=== PATIENT | male | born 1965 | race Caucasian/White ===

== ENCOUNTER 2020-02-12 22:24 | Inpatient (IN) | payer OTHER ==
[2020-02-12 22:48] VITALS: BMI 24.3
[2020-02-13] MEDS ORDERED: LACTATED RINGERS SOLUTION 1000 ML INFUS.BAG IV ONE (01:23)
[2020-02-13 02:29] LABS: BASO % 0.4 % (0-2.0); EOS % 0.4 % (0-4.5); HEMATOCRIT 43.6 % (35.4-49); HEMOGLOBIN 14.8 GM/dL (11.7-16.9); LYMPH % 26.2 % (8-40); MCH 30.5 pg (25.7-33.7); MEAN CELL VOLUME 89.9 fl (80-96); MEAN PLT VOLUME 8.6 fl (7.5-11.1); MONO % 10.8 % (3.8-10.2); NEUT % 62.2 % (42.8-82.8); PLATELET COUNT 167 K/MM3 (134-434); RBC 4.85 M/mm3 (4.00-5.60); RDW 12.7 % (11.9-15.9); WHITE BLOOD COUNT 5.2 K/mm3 (4.0-10.0)
[2020-02-13 02:51] LABS: CHLORIDE 97 mmol/L (98-107); SODIUM 134 mmol/L (136-145)
[2020-02-13 02:53] LABS: ALBUMIN 3.6 g/dl (3.4-5.0); ANION GAP 9 MMOL/L (8-16); CALCIUM 8.5 mg/dL (8.5-10.1); CO2 28 mmol/L (21-32)
[2020-02-13 02:54] LABS: BLOOD UREA NITROGEN 15.2 mg/dL (7-18); GLUCOSE,RANDOM 106 mg/dL (74-106); INR 1.08 (0.83-1.09); PROTHROMBIN TIME (PATIENT) 13.2 SEC (9.7-13.0)
[2020-02-13 02:56] LABS: ACTIVATED PTT 28.1 SECONDS (25.2-36.5); SGPT/ALT 43 U/L (13-61)
[2020-02-13 02:57] LABS: CREATININE 0.9 mg/dL (0.55-1.3); SGOT/AST 20 U/L (15-37)
[2020-02-13 02:58] LABS: BILIRUBIN,TOTAL 0.4 mg/dL (0.2-1); TOT PROT 7.1 g/dl (6.4-8.2)
[2020-02-13 02:59] LABS: ALK PHOS 56 U/L (45-117)
[2020-02-13] MEDS ORDERED: ASPIRIN 325 MG TABLET PO ONE (04:44)
[2020-02-13] MEDS ORDERED: ASPIRIN 81 MG CHEWABLE TABLETS PO ONE (04:48)
[2020-02-13] MEDS ORDERED: ASPIRIN 81 MG CHEWABLE TABLETS ONE (04:53)
[2020-02-13 07:15] LABS: COCAINE, UR NEGATIVE ng/ml (CUTOFF=300); METHADONE, UR NEGATIVE ng/ml (CUTOFF=300); OPIATES, URI NEGATIVE ng/ml (CUTOFF=300); URINE BARBITURATES NEGATIVE ng/ml (CUTOFF=200)
[2020-02-13 07:16] LABS: PHENCYCLIDINE,URINE NEGATIVE ng/ml (CUTOFF=25)
[2020-02-13 07:34] LABS: URINE AMPHETAMINES NEGATIVE ng/ml (CUTOFF=500); URINE BENZODIAZEPINES NEGATIVE ng/ml (CUTOFF=200)
[2020-02-13 08:33] LABS: URINE APPEARANCE CLEAR; URINE BILIRUBIN NEGATIVE (NEGATIVE); URINE COLOR YELLOW; URINE GLUCOSE (UA) NEGATIVE (NEGATIVE); URINE KETONE TRACE (NEGATIVE)
[2020-02-13 08:34] LABS: EPI CELLS 8.4 /uL (0-25.1); HYALINE CASTS 1.66 /uL (0-3.1); URINE BACTERIA 4.7 /uL (0-1359); URINE LEUK ESTERASE NEGATIVE (NEGATIVE); URINE NITRITE NEGATIVE (NEGATIVE); URINE PROTEIN NEGATIVE (NEGATIVE); URINE RBC 1.6 /uL (0-23.9)
[2020-02-13] MEDS ORDERED: ATORVASTATIN CA 80 MG TABLET (FP) PO ONE (17:10)
[2020-02-13] MEDS ORDERED: MULTIVITAMINS (DAILY MVI) TABLET (FP) ONE (18:18)
[2020-02-13] MEDS ORDERED: THIAMINE HCL 100 MG TABLET (FP) ONE (18:18)
[2020-02-13] MEDS ORDERED: ASPIRIN 325 MG ENTERIC COATED TABLET (FP) ONE (18:18)
[2020-02-13] MEDS ORDERED: FOLIC ACID 1 MG TABLET (FP) ONE (18:19)
[2020-02-13] MEDS ORDERED: ATORVASTATIN CA 80 MG TABLET (FP) ONE (18:19)
[2020-02-13] MEDS: MULTIVITAMINS (DAILY MVI) TABLET (FP) PO SCH (18:32)
[2020-02-13] MEDS: FOLIC ACID 1 MG TABLET (FP) PO SCH (18:32)
[2020-02-13] MEDS: THIAMINE HCL 100 MG TABLET (FP) PO SCH (18:32)
[2020-02-14 00:24] LABS: CHOLESTEROL 111 mg/dL (50-200)
[2020-02-14 00:25] LABS: LDH 156 U/L (87-246); LDL CHOLESTEROL (ONLY SJRH) 64 mg/dL (5-100); TRIGLYCERIDES 83 mg/dL (0-150)
[2020-02-14 00:27] LABS: HDL CHOLESTEROL 44 mg/dL (40-60)
[2020-02-14] MEDS: ASCORBIC ACID 500 MG TABLET (FP) PO SCH ×3 (00:45→22:09)
[2020-02-14] MEDS: FOLIC ACID 1 MG TABLET (FP) PO SCH (10:11)
[2020-02-14] MEDS: ASPIRIN COATED 81 MG TABLET.EC PO SCH (10:11)
[2020-02-14] MEDS: MULTIVITAMINS (DAILY MVI) TABLET (FP) PO SCH (10:11)
[2020-02-14] MEDS: THIAMINE HCL 100 MG TABLET (FP) PO SCH (10:11)
[2020-02-14] MEDS: ZINC SULFATE 220 MG CAPSULE (FP) PO SCH (10:11)
[2020-02-14] MEDS ORDERED: PT OWN MED DRAWER 7, Y5N ONE (17:55)
[2020-02-14] MEDS: ATORVASTATIN CA 80 MG TABLET (FP) PO SCH (22:09)
[2020-02-15] MEDS: ASCORBIC ACID 500 MG TABLET (FP) PO SCH ×2 (12:09→21:14)
[2020-02-15] MEDS: FOLIC ACID 1 MG TABLET (FP) PO SCH (12:09)
[2020-02-15] MEDS: ASPIRIN COATED 81 MG TABLET.EC PO SCH (12:09)
[2020-02-15] MEDS: THIAMINE HCL 100 MG TABLET (FP) PO SCH (12:09)
[2020-02-15] MEDS: MULTIVITAMINS (DAILY MVI) TABLET (FP) PO SCH (12:09)
[2020-02-15] MEDS: ZINC SULFATE 220 MG CAPSULE (FP) PO SCH (12:09)
[2020-02-15] MEDS ORDERED: VANCOMYCIN 1 GM in D5W (PRE-DOCKED) 1,000 MG/250 ML IVPB ONE (18:30)
[2020-02-15] MEDS ORDERED: DEXTROSE 5%-WATER 100 ML IVPB ONE (19:26)
[2020-02-15] MEDS: CEFTRIAXONE 2 GM in DEXTROSE 5%-WATER 2 GM/100 ML BAG IVPB SCH (19:39)
[2020-02-15] MEDS: ACYCLOVIR INJECTION 750 MG in DEXTROSE 5%-WATER - 100 ML IVPB SCH (20:13)
[2020-02-15] MEDS: ATORVASTATIN CA 80 MG TABLET (FP) PO SCH (21:14)
[2020-02-15 21:50] LABS: CSF APPEARANCE CLEAR; CSF COLOR COLORLESS
[2020-02-15 21:51] LABS: CSF WBC 7
[2020-02-16] MEDS ORDERED: PT OWN MED DRAWER 7, Y5N ONE ×3 (01:50→17:19)
[2020-02-16] MEDS: ACYCLOVIR INJECTION 750 MG in DEXTROSE 5%-WATER - 100 ML IVPB SCH ×3 (01:53→18:21)
[2020-02-16] MEDS ORDERED: DEXTROSE 5%-WATER 100 ML IVPB ONE ×2 (05:03→17:19)
[2020-02-16] MEDS: CEFTRIAXONE 2 GM in DEXTROSE 5%-WATER 2 GM/100 ML BAG IVPB SCH ×2 (05:06→17:36)
[2020-02-16 06:38] LABS: BASO % 0.7 % (0-2.0); EOS % 2.6 % (0-4.5); HEMATOCRIT 43.3 % (35.4-49); HEMOGLOBIN 14.7 GM/dL (11.7-16.9); LYMPH % 23.2 % (8-40); MCH 30.1 pg (25.7-33.7); MCHC 33.9 g/dl (32.0-35.9); MEAN CELL VOLUME 88.7 fl (80-96); MEAN PLT VOLUME 8.7 fl (7.5-11.1); MONO % 10.1 % (3.8-10.2); NEUT % 63.4 % (42.8-82.8); PLATELET COUNT 231 K/MM3 (134-434); RBC 4.88 M/mm3 (4.00-5.60); RDW 12.6 % (11.9-15.9); WHITE BLOOD COUNT 6.3 K/mm3 (4.0-10.0)
[2020-02-16 06:40] LABS: POTASSIUM 4.2 mmol/L (3.5-5.1)
[2020-02-16 06:43] LABS: ALBUMIN 3.5 g/dl (3.4-5.0); BLOOD UREA NITROGEN 18.1 mg/dL (7-18)
[2020-02-16 06:46] LABS: CREATININE 1.2 mg/dL (0.55-1.3)
[2020-02-16 06:47] LABS: BILIRUBIN,TOTAL 0.9 mg/dL (0.2-1); TOT PROT 6.8 g/dl (6.4-8.2)
[2020-02-16] MEDS: FOLIC ACID 1 MG TABLET (FP) PO SCH (09:07)
[2020-02-16] MEDS: THIAMINE HCL 100 MG TABLET (FP) PO SCH (09:07)
[2020-02-16] MEDS: MULTIVITAMINS (DAILY MVI) TABLET (FP) PO SCH (09:07)
[2020-02-16] MEDS: ASCORBIC ACID 500 MG TABLET (FP) PO SCH ×2 (09:07→21:30)
[2020-02-16] MEDS: ZINC SULFATE 220 MG CAPSULE (FP) PO SCH (09:07)
[2020-02-16] MEDS: ASPIRIN COATED 81 MG TABLET.EC PO SCH (09:08)
[2020-02-16] MEDS: SODIUM CHLORIDE 1,000 ML IV SCH (12:59)
[2020-02-16] MEDS: ATORVASTATIN CA 80 MG TABLET (FP) PO SCH (21:30)
[2020-02-16] MEDS: busPIRone HCL 10 MG TABLET (FP) PO SCH (21:30)
[2020-02-17] MEDS ORDERED: PROCHLORPERAZINE INJECTION 10 MG/2 ML VIAL IM ONE (00:51)
[2020-02-17] MEDS ORDERED: PT OWN MED DRAWER 7, Y5N ONE ×4 (01:11→20:46)
[2020-02-17] MEDS: ACYCLOVIR INJECTION 750 MG in DEXTROSE 5%-WATER - 100 ML IVPB SCH ×2 (01:57→11:40)
[2020-02-17] MEDS ORDERED: DEXTROSE 5%-WATER 100 ML IVPB ONE ×2 (05:29→17:08)
[2020-02-17] MEDS: SODIUM CHLORIDE 1,000 ML IV SCH ×3 (05:41→21:55)
[2020-02-17] MEDS: CEFTRIAXONE 2 GM in DEXTROSE 5%-WATER 2 GM/100 ML BAG IVPB SCH ×2 (05:41→17:38)
[2020-02-17 07:23] LABS: BASO % 0.9 % (0-2.0); EOS % 1.9 % (0-4.5); HEMATOCRIT 40.9 % (35.4-49); HEMOGLOBIN 13.8 GM/dL (11.7-16.9); LYMPH % 17.9 % (8-40); MCH 30.2 pg (25.7-33.7); MCHC 33.8 g/dl (32.0-35.9); MEAN CELL VOLUME 89.2 fl (80-96); MEAN PLT VOLUME 8.7 fl (7.5-11.1); MONO % 11.6 % (3.8-10.2); NEUT % 67.7 % (42.8-82.8); PLATELET COUNT 219 K/MM3 (134-434); RBC 4.58 M/mm3 (4.00-5.60); RDW 12.9 % (11.9-15.9); WHITE BLOOD COUNT 7.3 K/mm3 (4.0-10.0)
[2020-02-17 07:36] LABS: POTASSIUM 4.2 mmol/L (3.5-5.1)
[2020-02-17 07:48] LABS: ALBUMIN 3.2 g/dl (3.4-5.0); BLOOD UREA NITROGEN 20.5 mg/dL (7-18); CALCIUM 8.7 mg/dL (8.5-10.1); MAGNESIUM 2.4 mg/dL (1.8-2.4)
[2020-02-17 07:50] LABS: CREATININE 1.4 mg/dL (0.55-1.3); PHOSPHOROUS 4.7 mg/dL (2.5-4.9)
[2020-02-17 07:51] LABS: BILIRUBIN,TOTAL 0.5 mg/dL (0.2-1); TOT PROT 6.3 g/dl (6.4-8.2)
[2020-02-17] MEDS: busPIRone HCL 10 MG TABLET (FP) PO SCH ×2 (09:44→21:51)
[2020-02-17] MEDS: ZINC SULFATE 220 MG CAPSULE (FP) PO SCH (09:44)
[2020-02-17] MEDS: MULTIVITAMINS (DAILY MVI) TABLET (FP) PO SCH (09:44)
[2020-02-17] MEDS: THIAMINE HCL 100 MG TABLET (FP) PO SCH (09:44)
[2020-02-17] MEDS: FOLIC ACID 1 MG TABLET (FP) PO SCH (09:44)
[2020-02-17] MEDS: ASPIRIN COATED 81 MG TABLET.EC PO SCH (09:44)
[2020-02-17] MEDS: ASCORBIC ACID 500 MG TABLET (FP) PO SCH ×2 (09:44→21:51)
[2020-02-17] MEDS: ATORVASTATIN CA 80 MG TABLET (FP) PO SCH (21:51)
[2020-02-18] MEDS ORDERED: ACYCLOVIR INJECTION 750 MG in DEXTROSE 5%-WATER - 100 ML IVPB SCH (02:00)
[2020-02-18] MEDS ORDERED: DEXTROSE 5%-WATER 100 ML IVPB ONE (06:05)
[2020-02-18] MEDS: CEFTRIAXONE 2 GM in DEXTROSE 5%-WATER 2 GM/100 ML BAG IVPB SCH (06:13)
[2020-02-18 09:02] LABS: POTASSIUM 4.4 mmol/L (3.5-5.1)
[2020-02-18 09:04] LABS: BLOOD UREA NITROGEN 14.4 mg/dL (7-18); CALCIUM 8.8 mg/dL (8.5-10.1); MAGNESIUM 2.5 mg/dL (1.8-2.4)
[2020-02-18 09:07] LABS: CREATININE 1.2 mg/dL (0.55-1.3); PHOSPHOROUS 3.6 mg/dL (2.5-4.9)
[2020-02-18] MEDS: FOLIC ACID 1 MG TABLET (FP) PO SCH (09:43)
[2020-02-18] MEDS: MULTIVITAMINS (DAILY MVI) TABLET (FP) PO SCH (09:43)
[2020-02-18] MEDS: ACYCLOVIR INJECTION 700 MG in DEXTROSE 5%-WATER - 100 ML IVPB SCH ×2 (09:43→17:45)
[2020-02-18] MEDS: ASPIRIN COATED 81 MG TABLET.EC PO SCH (09:44)
[2020-02-18] MEDS: ASCORBIC ACID 500 MG TABLET (FP) PO SCH ×2 (09:44→21:13)
[2020-02-18] MEDS: busPIRone HCL 10 MG TABLET (FP) PO SCH ×3 (09:44→21:15)
[2020-02-18] MEDS: ZINC SULFATE 220 MG CAPSULE (FP) PO SCH (09:44)
[2020-02-18] MEDS: THIAMINE HCL 100 MG TABLET (FP) PO SCH (09:44)
[2020-02-18] MEDS ORDERED: PT OWN MED DRAWER 7, Y5N ONE (17:28)
[2020-02-18] MEDS: SODIUM CHLORIDE 1,000 ML IV SCH (17:44)
[2020-02-18] MEDS: ATORVASTATIN CA 80 MG TABLET (FP) PO SCH (21:13)
[2020-02-19] MEDS ORDERED: PT OWN MED DRAWER 7, Y5N ONE ×2 (01:30→09:32)
[2020-02-19] MEDS: ACYCLOVIR INJECTION 700 MG in DEXTROSE 5%-WATER - 100 ML IVPB SCH ×2 (01:32→11:10)
[2020-02-19 07:00] LABS: EOS % 3.4 % (0-4.5); HEMATOCRIT 40.3 % (35.4-49); HEMOGLOBIN 13.6 GM/dL (11.7-16.9); LYMPH % 29.4 % (8-40); MCH 30.6 pg (25.7-33.7); MCHC 33.8 g/dl (32.0-35.9); MEAN CELL VOLUME 90.5 fl (80-96); MEAN PLT VOLUME 9.1 fl (7.5-11.1); MONO % 9.5 % (3.8-10.2); NEUT % 56.7 % (42.8-82.8); PLATELET COUNT 236 K/MM3 (134-434); RBC 4.45 M/mm3 (4.00-5.60); RDW 12.9 % (11.9-15.9); WHITE BLOOD COUNT 5.6 K/mm3 (4.0-10.0)
[2020-02-19 07:06] VITALS: BP 113/53; PULSE 60; TEMP 97.7
[2020-02-19 07:06] LABS: BLOOD UREA NITROGEN 11.3 mg/dL (7-18); CALCIUM 8.5 mg/dL (8.5-10.1); MAGNESIUM 2.1 mg/dL (1.8-2.4)
[2020-02-19 07:10] LABS: PHOSPHOROUS 3.6 mg/dL (2.5-4.9); POTASSIUM 3.9 mmol/L (3.5-5.1)
[2020-02-19] MEDS: MULTIVITAMINS (DAILY MVI) TABLET (FP) PO SCH (09:50)
[2020-02-19] MEDS: ASPIRIN COATED 81 MG TABLET.EC PO SCH (09:50)
[2020-02-19] MEDS: FOLIC ACID 1 MG TABLET (FP) PO SCH (09:50)
[2020-02-19] MEDS: busPIRone HCL 10 MG TABLET (FP) PO SCH (09:50)
[2020-02-19] MEDS: ASCORBIC ACID 500 MG TABLET (FP) PO SCH (09:50)
[2020-02-19] MEDS: ZINC SULFATE 220 MG CAPSULE (FP) PO SCH (09:50)
[2020-02-19] MEDS: THIAMINE HCL 100 MG TABLET (FP) PO SCH (09:50)
[2020-02-24 07:10] LABS: LYME PCR CSF Negative (Negative)
[2020-02-28 02:06] LABS: MUMPS AB IGG CSF < 5.0 AU/mL (<=10.9)
[2020-03-01 18:09] LABS: HERPES SIMPLEX TYPE 1 IGM 1.43 IV (<=0.89)
== END 2020-02-19 19:00 | disposition home or self-care (01) | DRG 178 ==
LOC: JER 22:24 → JERBED 02-13 03:59 → J4S 02-13 20:41
PROVIDERS: ADMIT Internal Medicine; ATTEND Internal Medicine
PROC: 009U3ZX Drainage of Spinal Canal, Percutaneous Approach, Diagnostic (ICD-10-PCS; principal; 2020-02-15)
DX: U07.1 COVID-19 (principal); N17.9 Acute kidney failure, unspecified; A85.8 Other specified viral encephalitis; R47.01 Aphasia; E87.1 Hypo-osmolality and hyponatremia; R09.02 Hypoxemia; R41.82 Altered mental status, unspecified; F41.8 Other specified anxiety disorders
CPT/HCPCS: 36415; 70450-TC; 70496-TC; 70498-TC; 70551-TC; 71045-TC-FY; 80048; 80053; 80061; 80307; 81003; 82550; 82607; 82728; 82945; 82962; 83036; 83615; 83721; 83735; 84100; 84157; 84443; 84484; 85025; 85379; 85384; 85610; 85651; 85730; 86140; 86694; 86735; 86765; 86780; 86787; 86788; 86789; 87070; 87205; 87476; 87529; 87798; 87899; 93005; 93010; 99285-25; C9803; U0003